=== PATIENT | male | born 1985 | race Two or more races ===

== ENCOUNTER 2018-03-04 22:57 | Emergency (ER) | payer OTHER ==
[~2018-03-04] VITALS: Ht 165.1 cm; Wt 59.0 kg
[2018-03-05] MEDS ORDERED: PROVENTIL HFA6.7 GM IH (04:13)
[2018-03-05] MEDS ORDERED: TUSSI-PRES LIQ118 ML PO (04:13)
== END 2018-03-05 04:18 | disposition home or self-care (01) ==
LOC: ER 22:57
DX: R06.02 Shortness of breath (principal)

== ENCOUNTER 2019-08-02 08:37 | Emergency (ER) | payer OTHER ==
[~2019-08-02] VITALS: Ht 165.1 cm; Wt 63.5 kg
[~2019-08-02 08:37] MED LIST: PROVENTIL HFA6.7 GM IH; TUSSI-PRES LIQ118 ML PO
[2019-08-02] MEDS ORDERED: BACTRIM DS TAB1 EACH PO (14:14)
== END 2019-08-02 14:26 | disposition home or self-care (01) ==
LOC: ER 08:37
DX: N20.1 Calculus of ureter (principal)

== ENCOUNTER 2020-09-05 17:19 | Emergency (ER) | payer OTHER ==
[~2020-09-05] VITALS: Ht 165.1 cm; Wt 65.8 kg
[~2020-09-05 17:19] MED LIST changes: +BACTRIM DS TAB1 EACH PO
== END 2020-09-05 19:50 | disposition home or self-care (01) ==
LOC: ER 17:19
DX: S00.03XA Contusion of scalp, initial encounter (principal); W22.8XXA Striking against or struck by other objects, initial encounter; Y93.89 Activity, other specified; Y92.89 Other specified places as the place of occurrence of the external cause; Y99.8 Other external cause status